=== PATIENT | female | born 1990 | race Caucasian/White ===

== ENCOUNTER 2020-01-12 21:10 | Emergency (ER) | payer OTHER, SELFPAY ==
--- NOTE | ~2020-01-12 | XR_ITS ---
EXAMINATION: XR lumbar spine 2-3V DATE: 01/12/2020 22:01 INDICATION: Low back pain after working out TECHNIQUE: Anteroposterior and lateral views of the lumbar spine, and cone-down lateral view of the l umbosacral junction were obtained. COMPARISON: CT abdomen and pelvis dated 12/19/2016 FINDINGS: Alignment is normal. Vertebral body heights are normal. Unchanged mild disc height loss at L4-L5. Rem aining disc heights are normal. Minimal to mild lumbar facet osteoarthritis. Sacrum and bilateral sac roiliac joints are normal. Normal bowel gas pattern. IMPRESSION: 1. Unchanged mild lower lumbar spondylosis. No evident acute osseous abnormality. Reviewed, dictated and finalized at location A. SHEARER IMPRESSION: 1. Unchanged mild lower lumbar spondylosis. No evident acute osseous abnormalit y.
[2020-01-12 21:14] VITALS: BP 141/94; PULSE 91; RESP 20; TEMP 36.5; O2SAT 100
--- NOTE | 2020-01-12 21:38 | ED.BACK ---
HPI - Back Pain/Injury General Chief Complaint: Back Pain/Injury Stated Complaint: lower back pain after excercise Time Seen by Provider: 01/12/20 21:21 Source: patient and RN notes reviewed Mode of arrival: ambulatory Limitations: no limitations History of Present Illness HPI Narrative: Pt is a 29 y/o female who presents to the ED with c/o low back pain secondary to injury happening this evening. She notes that she was performing an exercise with kettlebells this evening when she accidentally bent her lower back and felt an immediate shooting pain in her lumbar spine. Pt states that bending her spine seems to aggravate her pain. She notes that she has been able to walk since the injury, and currently denies any numbness/tingling or other symptoms. MD elicited complaint: back injury Onset (ago): hour(s) (several) Quality: other (shooting) Location: lumbar spine Exacerbating factors: movement (bending spine) Context: while lifting Associated symptoms: denies other symptoms Related Data Allergies Allergy/AdvReac Type Severity Reaction Status Date / Time nut - unspecified Allergy Unknown tree nuts Verified 11/22/17 21:20 sulfamethizole Allergy Unknown Nausea Verified 11/22/17 21:20 tramadol Allergy Unknown Nausea Verified 11/22/17 21:20 Vinegar Allergy Severe HIVES,THROAT Uncoded 01/03/17 05:42 SWELLING Review of Systems Review of Systems: Narrative: CONSTITUTIONAL: Denies fever, chills, or sweats. MUSCULOSKELETAL: Reports low back pain. Denies joint pain or myalgia. NEUROLOGIC: Denies headache, numbness/tingling, difficulty walking, or weakness. : No difficulty with bowel or bladder function, denies saddle anesthesia All systems reviewed & are unremarkable except as noted in HPI and below PMFSH Past Medical History Medical History Colitis Eczema Endometriosis GI bleed Psoriasis Surgical History Surgical History No significant past surgical history Family History Family History (Updated 08/01/18 @ 11:50 by DOCTOR UNKNOWN) Father Diabetes mellitus Family history of cardiovascular disease Mother Diabetes mellitus Depression Other Family history of malignant neoplasm of breast Family history of malignant neoplasm of ovary Social History Social History Smoking status: Never smoker Alcohol intake: never Exam Narrative: Exam Narrative: GENERAL: Well-appearing, well-nourished, and in no acute distress. HEAD: Normocephalic, atraumatic. EYES: PERRLA and EOMI. ENT: Nares clear, no rhinorrhea or epistaxis. Mucous membranes moist. NECK: Supple. CHEST: Clear to auscultation. No respiratory distress. HEART: Regular rate and rhythm. No murmur heard. Normal peripheral pulses. ABDOMEN: Soft, nontender, nondistended, normal active bowel sounds. EXTREMITIES: Normal range of motion. No edema. SPINE: Midline L4 and lumbar paraspinal tenderness. SKIN: Warm, dry, no rash. NEURO: No focal deficits. Alert and oriented. . EOMs intact without nystagmus. No facial droop/asymmetry noted bilaterally. Grimace intact. Intact sensation in face. Hearing intact bilaterally. Shoulder shrug intact. Strength 5/5 bilateral upper extremities. Strength 5/5 bilateral lower extremities. Reflexes 2+ patellar. Heel to taylor intact bilaterally.Ambulatory with pain in paraspinal L4 area, no stepoffs or deformities. Pt with pain with flexion. Course Course Emergency Course: Given History and Exam the patient appears to be at low risk for Spinal Cord Compression Syndrome, Vertebral Malignancy/Mets, acute Spinal Fracture, Vertebral Osteomyelitis, Epidural Abscess, Infected or Obstructing Kidney Stone. Patient with most likely disc herniation, radiculopathy from improper lifting with exercise this evening. Their presentation appears most likely to be secondary to non-emergent musculoskeletal etiology vs
[2020-01-12] MEDS: ACETAMINOPHEN 500 MG TABLET 1000 MG PO (22:03)
[2020-01-12] MEDS: DEXAMETHASONE SOD PHOS INJ 4 MG/ML VIAL 10 MG BY MOUTH (22:03)
[2020-01-12] MEDS: KETOROLAC (*BKC) 60 MG/2 ML VIAL 30 MG IM (22:14)
[2020-01-12] MEDS: DIAZEPAM 5 MG TABLET PO (22:20)
[2020-01-12 22:46] VITALS: BP 138/90; PULSE 88; RESP 16; O2SAT 100
== END 2020-01-12 22:40 | disposition home or self-care (01) ==
PROVIDERS: Emergency Provider Emergency Medicine; PCP Family Medicine
DX: M54.16 Radiculopathy, lumbar region (principal)
CPT/HCPCS: 72100; 81025; 96372; 99283; A9270; J1100; J1885

== ENCOUNTER 2020-04-29 12:28 | Outpatient (CLI) | payer OTHER, SELFPAY ==
--- NOTE | ~2020-04-29 | MR_ITS ---
EXAMINATION: MR lumbar spine wo con DATE: 04/29/2020 13:55 INDICATION: Lumbar radiculopathy. TECHNIQUE: Magnetic resonance imaging (MRI) of the lumbar spine was performed without intravenous con trast. Sequences included sagittal T2-weighted FSE, sagittal T2-weighted FS FSE, sagittal T1-weighted FSE, and axial T2-weighted FSE. COMPARISON: Lumbar spine radiographs 01/12/2020 FINDINGS: Bone alignment is normal. Vertebral body heights are normal. There is mildly decreased disc height at L4-L5. The distal spinal cord signal intensity is normal. The conus medullaris is at T12-L 1. The following disc levels are specifically discussed: L1-L2 through L3-L4: The disc does not extend beyond the endplate margin. There is no facet joint ost eoarthritis. There is no neural foraminal stenosis. There is no central canal stenosis. L4-L5: The disc is bulging and abuts the bilateral L5 nerve roots. There is mild bilateral facet join t osteoarthritis. There is mild bilateral neural foraminal stenosis. There is mild central canal sten osis. L5-S1: The disc does not extend beyond the endplate margin. There is no facet joint osteoarthritis. T here is no neural foraminal stenosis. There is no central canal stenosis. IMPRESSION: 1. Mild spondylosis at L4-L5. Reviewed, dictated and finalized at location A.
== END 2020-04-29 12:29 | disposition home or self-care (01) ==
PROVIDERS: PCP Family Medicine
DX: M47.26 Other spondylosis with radiculopathy, lumbar region (principal)
CPT/HCPCS: 72148

== ENCOUNTER 2020-12-09 06:54 | Outpatient (NON) | payer OTHER, SELFPAY ==
[2020-12-09 22:24] LABS: SARS-CoV-2 RNA PCR Negative
== END 2020-12-09 06:55 ==
LOC: ANHCOVIDDT 06:58
PROVIDERS: Family Provider Family Medicine; PCP Family Medicine; Visit Provider Family Medicine
DX: R50.9 Fever, unspecified (principal); Z20.822 Contact with and (suspected) exposure to COVID-19
CPT/HCPCS: C9803; U0003; U0005

== ENCOUNTER 2021-07-24 11:26 | Emergency (ER) | payer OTHER, SELFPAY ==
[2021-07-24 11:33] VITALS: BP 136/89; PULSE 81; RESP 12; TEMP 36.8; O2SAT 100
--- NOTE | 2021-07-24 11:49 | ED.GENADULT ---
HPI - General Adult General Chief complaint: Nausea/Vomiting/Diarrhea Stated complaint: fever/vomiting/diarrhea/drainage/head congestion Source: patient Mode of arrival: ambulatory Limitations: no limitations History of Present Illness HPI narrative: Patient is a 31-year-old female presents to the urgent care via POV for evaluation of decreased appetite, nausea, vomiting, and diarrhea that has been present for 2 days. Additionally she reports fever, nasal drainage, and head congestion. Maximum temperature was 101.0. No relief with Tylenol or Zyrtec. Symptoms improve with not eating. Patient denies poor p.o. intake. Also reports 9 episodes of vomiting undigested food. She is now dry heaving. She reports brown watery diarrhea, all day Saturday . She is fully vaccinated against Covid. Denies known exposure to sick contacts. Related Data Home Medications Medication Instructions Recorded Confirmed acetaminophen 650 mg 650 mg PO Q8H 01/19/20 06/06/21 tablet,extended release cetirizine 10 mg tablet 10 mg PO DAILY 02/12/20 06/06/21 norethindrone 1 mg-ethinyl 1 tablet PO DAILY 02/12/20 06/06/21 estradiol 35 mcg () tablet Allergies Allergy/AdvReac Type Severity Reaction Status Date / Time sulfamethizole Allergy Unknown Nausea Verified 06/06/21 11:51 tramadol Allergy Unknown Nausea Verified 06/06/21 11:51 Vinegar Allergy Severe HIVES,THROAT Uncoded 06/06/21 11:51 SWELLING Review of Systems Review of Systems: Denies past abdominal medical history. Pertinent negatives chills, sweats, malaise, poor p.o. intake, recent weight loss, lymphadenopathy, headache, sore throat, dizziness, LOC, urinary sxs, back/flank pain, extremity paresthesias, blood in stool, constipation, belching, bloating, dry mouth, heartburn, jaundice, vomiting blood, sinus problems, nasal drainage, sneezing, cough, shortness of breath, heart palpitations PMFSH Past Medical History Medical History (Updated 07/24/21 @ 12:19 by Colleen Alcantar, STRATEGY EXECUTION CONSULTANT, ) Colitis Eczema Endometriosis GI bleed Psoriasis Surgical History Surgical History No significant past surgical history Family History Family History Father Diabetes mellitus Family history of cardiovascular disease Mother Diabetes mellitus Depression Other Family history of malignant neoplasm of breast Family history of malignant neoplasm of ovary Social History Social History Alcohol intake: never Exam Narrative: GENERAL: Well-appearing, well-nourished, and in no acute distress. HEAD: Normocephalic, atraumatic. NECK: Supple. No lymphadenopathy or nuchal rigidity. CHEST: Lung sounds are clear to auscultation in bilateral lung hathaway. No respiratory distress. HEART: Regular rate and rhythm. No murmur, gallop, or rub heard. ABDOMEN: Soft, obese, non-distended, hypo-active bowel sounds in all quadrants. Moderate pain elicited to right upper quadrant upon palpation. Generalized tenderness is appreciated throughout all quadrants. Patient spontaneously guarded abdomen upon palpation. No rebound tenderness. No pulsatile or palpable abdominal mass(es). No CVAT : Bladder non-distended, non-tender EXTREMITIES: Normal range of motion. No edema. SKIN: Warm, dry, no rash. No skin color changes. Excellent turgor. NEURO: No focal deficits. Alert and oriented x3. SPECIAL OBSERVATIONS: Smiling. Laughing. No evidence of discomfort. C/O of of proportion to exam. Eating XXX. Running around. Tolerates food/fluids. Course Vital Signs Vital signs: Vital Signs Temperature 98.3 F 07/24/21 11:33 Pulse Rate 81 07/24/21 11:33 Respiratory Rate 12 07/24/21 11:33 Blood Pressure 136/89 07/24/21 11:33 Pulse Oximetry 100 07/24/21 11:33 Temperature 98.3 F 07/24/21 11:33 Pulse Rate 81 07/24/21 1
== END 2021-07-24 12:12 | disposition short-term general hospital (02) ==
PROVIDERS: Emergency Provider Nurse Practitioner Family; PCP Family Medicine
DX: R10.9 Unspecified abdominal pain (principal); R11.2 Nausea with vomiting, unspecified; R19.7 Diarrhea, unspecified
CPT/HCPCS: 99211; 99212; G0463

== ENCOUNTER 2021-07-24 12:30 | Emergency (ER) | payer OTHER, SELFPAY ==
--- NOTE | ~2021-07-24 | CT_ITS ---
EXAMINATION: CTA chest PE abdomen pel DATE: 07/24/2021 15:55 INDICATION: Abdominal pain. Chest pain. Nausea and vomiting. TECHNIQUE: Computed tomography angiography (CTA) of the chest was performed with 100 mL Omnipaque-350 intravenous contrast timed to evaluate the pulmonary arteries. Coronal maximum intensity projection 3D-reconstructions were created by the technologist. Computed tomography (CT) of the abdomen and pelv is was performed with intravenous contrast. Automated exposure control and iterative reconstruction t echnique were employed. The dose-length product was 1820.44 mGy-cm. COMPARISON: CT abdomen and pelvis 12/19/2016 FINDINGS: CTA chest: The lungs demonstrate motion artifact and mild atelectasis. No pleural effusion. The heart size is normal. No pericardial effusion. There is no pulmonary embolus. CT abdomen and pelvis: The liver, gallbladder, spleen, pancreas, adrenal glands, and kidneys are norm al. There are no dilated loops of bowel. The appendix is normal. There are no pathologically enlarged lymph nodes. There is no free intraperitoneal fluid. The bones are unremarkable. IMPRESSION: 1. No pulmonary embolus. Sensitivity is moderately decreased by motion artifact. 2. No etiology for the patient's symptoms. Reviewed, dictated and finalized at location A. IMPRESSION: 1. No pulmonary embolus. Sensitivity is moderately decreased by motion artifact . 2. No etiology for the patient's symptoms.
--- NOTE | ~2021-07-24 | XR_ITS ---
EXAMINATION: XR chest 1V portable DATE: 07/24/2021 14:07 INDICATION: Cough TECHNIQUE: frontal view of the chest was obtained. COMPARISON: Chest radiograph dated 11/03/2005 FINDINGS: The lungs remain clear with no focal airspace opacities, pulmonary edema, pleural effusion or pneumot horax. The cardiomediastinal silhouette is normal. Visualized bones and soft tissues are unremarkable . IMPRESSION: 1. No acute cardiopulmonary disease. Reviewed, dictated and finalized at location A.
[2021-07-24 12:33] VITALS: BP 125/81; PULSE 73; RESP 16; TEMP 37.3; O2SAT 98
[2021-07-24 12:48] LABS: Basophils Percent Auto 0.4 % (0.2-1.2); Eosinophils Absolute Auto 0.1 K/mm3 (0-0.3); Eosinophils Percent Auto 1.3 % (0-4.4); Hematocrit 41.8 % (37.0-47.0); Hemoglobin 13.8 g/dL (12.0-15.0); Immature Granulocyte Absolute 0.02 K/mm3 (0.00-0.031); Immature Granulocyte Percent A 0.3 % (0-0.5); Lymphocytes Absolute Auto 2.02 K/mm3 (0.9-3.2); Lymphocytes Percent Auto 29.6 % (18.3-44.2); Mean Corpuscular Hemoglobin 29.2 pg (26-34); Mean Corpuscular Volume 88.4 fl (80-100); Mean Platelet Volume 9.6 fl (7.4-10.4); Monocytes Absolute Auto 0.4 K/mm3 (0.1-0.6); Neutrophils Absolute Auto 4.3 K/mm3 (1.3-6.7); Neutrophils Percent Auto 62.4 % (45.5-73.1); Platelet Count Result 321 k/mm3 (150-375); Red Blood Count 4.73 M/mm3 (4.2-5.4); Red Cell Distribution Width 13.3 % (11.5-14.5); White Blood Count 6.8 K/mm3 (4.5-10.0)
[2021-07-24 13:03] LABS: Alanine Aminotransferase 21 U/L (4-35); Albumin Level 3.8 g/dL (3.5-5.1); Alkaline Phosphatase 86 U/L (38-126); Anion Gap 5 mmol/L (8-16); Aspartate Amino Transferase 22 U/L (14-36); Bilirubin,Total 0.4 mg/dL (0.2-1.3); Blood Urea Nitrogen 9 mg/dL (7-17); Calcium 8.8 mg/dL (8.4-10.2); Carbon Dioxide 22 mmol/L (22-30); Chloride 110 mmol/L (98-107); Estimated CRCL calculation 104 ml/min; Estimated Glomerular Filt Rate > 60; Glucose 96 mg/dL (65-110); Lipase 30 U/L (23-300); Potassium 3.9 mmol/L (3.4-5.0); Sodium 137 mmol/L (137-145)
[2021-07-24 13:05] LABS: Add Urine Microscopic? YES; Appearance Urine Clear (Clear); Bacteria Urine Trace /hpf; Bilirubin Urine Negative (Negative); Blood Urine 1+ (Negative); Color Urine Yellow (Yellow); Glucose Urine UA Negative (Negative); Ketones Urine Negative (Negative); Leukocyte Esterase Ur 2+ LEU/UL (Negative); Mucus Urine Rare /lpf; Nitrate Urine Negative (Negative); Protein Urine Negative (Negative); Squamous Epithelial Cell Urine Moderate /hpf (Few); Urobilinogen Urine Negative mg/dL (<2.0)
[2021-07-24 13:37] VITALS: BP 137/90; PULSE 74; RESP 16; TEMP 36.8; O2SAT 100
--- NOTE | 2021-07-24 13:57 | ECG_ITS ---
Measurements Intervals [place] Rate: 61 P: -11 WI: 132 QRS: 42 QRSD: 98 T: 30 QT: 405 QTc: 411 Interpretive Statements SINUS RHYTHM WITH SINUS ARRHYTHMIA NORMAL ECG Electronically Signed On 07-24-2021 17:14:54 CDT by Gurmeet Rodriguez D.O.
--- NOTE | 2021-07-24 13:59 | ED.ABDPAIN ---
HPI - Abdominal Pain General Chief Complaint: Abdominal Pain Stated Complaint: n/v/fever, RUQ abd pain x2d Time Seen by Provider: 07/24/21 13:49 Source: patient Mode of arrival: ambulatory Limitations: no limitations History of Present Illness HPI narrative: This is a 31-year-old female that presents the emergency department for cold symptoms ongoing over the last 5 days. Reports she started to have some congestion. Reports that she started to have nausea vomiting and diarrhea. Reports she has also now developed a cough. Also reports intermittent fevers and chest tightness. Denies abdominal pain or dysuria. Related Data Home Medications Medication Instructions Recorded Confirmed norethindrone 1 mg-ethinyl 1 tablet PO DAILY 02/12/20 06/06/21 estradiol 35 mcg () tablet Allergies Allergy/AdvReac Type Severity Reaction Status Date / Time sulfamethizole Allergy Unknown Nausea Verified 06/06/21 11:51 tramadol Allergy Unknown Nausea Verified 06/06/21 11:51 Vinegar Allergy Severe HIVES,THROAT Uncoded 06/06/21 11:51 SWELLING Review of Systems Review of Systems: CONSTITUTIONAL: Reports fever ENT: Reports rhinorrhea, congestion CARDIOVASCULAR: Reports chest tightness RESPIRATORY: Reports cough. Denies dyspnea. GASTROINTESTINAL: Reports nausea, vomiting and diarrhea. Denies abdominal pain GENITOURINARY: Denies dysuria All systems reviewed & are unremarkable except as noted in HPI and below PMFSH Past Medical History Medical History (Updated 07/24/21 @ 16:49 by Lizz Rutherford PA-C) Colitis Eczema Endometriosis GI bleed Psoriasis Surgical History Surgical History No significant past surgical history Family History Family History Father Diabetes mellitus Family history of cardiovascular disease Mother Diabetes mellitus Depression Other Family history of malignant neoplasm of breast Family history of malignant neoplasm of ovary Social History Social History Alcohol intake: never Exam Narrative: GENERAL: Well-appearing, well-nourished, and in no acute distress. HEAD: Normocephalic, atraumatic. EYES: EOMI. ENT: Nares clear, no rhinorrhea or epistaxis. Mucous membranes moist. Oropharynx without tonsillar hypertrophy exudate or other lesions. Bilateral TMs pearly husain non-bulging NECK: Supple. No adenopathy or masses. CHEST: Clear to auscultation. No respiratory distress. No wheezes rales or rhonchi HEART: Regular rate and rhythm. No murmur heard. Normal peripheral pulses. ABDOMEN: Soft, nontender, nondistended, normal active bowel sounds. No CVA tenderness EXTREMITIES: Normal range of motion. No edema. SKIN: Warm, dry, no rash. NEURO: No focal deficits. Alert and oriented x3. PSYCH: Normal mood and affect Course Vital Signs Vital signs: Vital Signs Temperature 99.2 F 07/24/21 12:33 Pulse Rate 73 07/24/21 12:33 Respiratory Rate 16 07/24/21 12:33 Blood Pressure 125/81 07/24/21 12:33 Pulse Oximetry 98 07/24/21 12:33 Temperature 98.2 F 07/24/21 13:37 Pulse Rate 74 07/24/21 13:37 Respiratory Rate 16 07/24/21 13:37 Blood Pressure 137/90 07/24/21 13:37 Pulse Oximetry 100 07/24/21 13:37 MDM - Abdominal Pain MDM Narrative Medical decision making narrative: Patient presents to the ER for ongoing cold symptoms. Reports cough, congestion, fever, nausea, vomiting. She is afebrile and nontoxic-appearing. Her vitals are stable. CBC and metabolic panel without concerning findings. UA with 10-15 white blood cells, but also squamous epithelial cells. Suspect this was a contaminated catch. This will be sent for culture. Patient is asymptomatic. EKG without concerning findings. Baseline troponin is negative. D-dimer was elevated, so CTA of the chest was obtained. This is without evidence o
[2021-07-24] MEDS: ONDANSETRON INJ 4 MG/2 ML VIAL IV PUSH (14:07)
[2021-07-24] MEDS: SODIUM CHLORIDE 0.9% IV 1,000 ML 999 ML IV CONT (14:07)
--- NOTE | 2021-07-24 14:13 | PC.NURSE ---
lab, [place], added on Procal, Ferr, PT INR PTT D Dimer, LDH, and Trop I
[2021-07-24 14:24] LABS: Lactate Dehydrogenase 315 U/L (313-618)
[2021-07-24 14:27] LABS: INR 0.9; Prothrombin Time 12.3 Seconds (11.1-14.7)
[2021-07-24 14:28] LABS: Partial Thromboplastin Time 27.6 SECONDS (22.3-36.8)
[2021-07-24 14:37] LABS: Troponin I < 0.012 ng/mL (0.000-0.034)
[2021-07-24 16:57] VITALS: BP 133/84; PULSE 82; RESP 16; O2SAT 100
[2021-07-25 19:52] LABS: SARS-CoV-2 RNA PCR Negative
== END 2021-07-24 17:04 | disposition home or self-care (01) ==
PROVIDERS: Physician Assistant; Emergency Provider Emergency Medicine; PCP Family Medicine
DX: Z20.822 Contact with and (suspected) exposure to COVID-19 (principal); B34.9 Viral infection, unspecified
CPT/HCPCS: 36415; 71045; 71275; 74177; 80053; 81001; 81025; 82728; 83615; 83690; 84145; 84484; 85025; 85380; 85610; 85730; 87086; 87088; 93005; 96361; 96374; 96375; 99284; C9803; J0131; J2405; J7030; Q9967; U0003; U0005

== ENCOUNTER → 2021-09-26 03:54 | Outpatient (CLI) | payer OTHER, SELFPAY ==
[2021-09-26 16:54] LABS: SARS-CoV-2 RNA PCR Negative
== END ==
PROVIDERS: PCP Family Medicine; Visit Provider Physician Assistant
DX: R05.9 Cough, unspecified (principal); Z20.822 Contact with and (suspected) exposure to COVID-19
CPT/HCPCS: C9803; U0003; U0005

== ENCOUNTER → 2021-11-27 09:06 | Outpatient (CLI) | payer OTHER, SELFPAY ==
[2021-11-27 20:23] LABS: SARS-CoV-2 RNA PCR Negative
== END ==
PROVIDERS: PCP Family Medicine; Visit Provider Family Medicine
DX: R05.9 Cough, unspecified (principal); Z20.822 Contact with and (suspected) exposure to COVID-19
CPT/HCPCS: C9803; U0003; U0005

== ENCOUNTER 2024-02-03 08:27 | Outpatient (CLI) | payer OTHER, SELFPAY ==
--- NOTE | ~2024-02-03 | MMUS_ITS ---
EXAMINATION: MM diagnostic sarah BI w gila, US breast RT limited HISTORY: Palpable right breast abnormality TECHNIQUE: Additional 3-D tomosynthesis images of the breasts were performed and synthetic 2-D images were generated. CAD analysis was submitted and interpreted. High resolution Limited right breast ult rasound was performed. COMPARISON: None BREAST PARENCHYMAL COMPOSITION: Not dense: There are scattered areas of fibroglandular density. FINDINGS: MAMMOGRAPHIC FINDINGS: There are no suspicious masses, calcifications or architectural distortion in either breast to sugges t malignancy. ULTRASOUND: Limited right breast ultrasound: Normal heterogeneous echotexture in the area of palpable concern. No discrete solid or cystic mass. IMPRESSION: 1. No evidence for malignancy in either breast. 2. Recommend follow-up screening mammogram at age 40. BI-RADS Category 1: Negative Reviewed, dictated and finalized at location A. IMPRESSION: 1. No evidence for malignancy in either breast. 2. Recommend follow-up screening mammogram at age 40. BI-RADS Category 1: Negative
== END 2024-02-03 08:28 ==
PROVIDERS: PCP Advanced Practice Midwife; Visit Provider Advanced Practice Midwife
DX: N64.4 Mastodynia (principal)
CPT/HCPCS: 76642; 77062; 77066; G0279

== ENCOUNTER → 2024-07-06 10:30 | Outpatient (CLI) | payer OTHER, SELFPAY ==
--- NOTE | ~2024-07-06 | XR_ITS ---
XR wrist RT min 3V Ordering provider: Janette Lucas NP History: . M25.531 - Pain in right wrist . Comparison: None. FINDINGS: BONES: No acute fracture or dislocation. No definite scaphoid fracture. JOINT SPACES: Normal. SOFT TISSUES: Normal. IMPRESSION: No acute osseous abnormality right wrist. Reviewed, dictated and finalized at location A.
== END ==
PROVIDERS: PCP Family Medicine; Visit Provider Nurse Practitioner Family
DX: M25.531 Pain in right wrist (principal)
CPT/HCPCS: 73110

== ENCOUNTER 2024-12-17 10:23 | Outpatient (CLI) | payer OTHER, SELFPAY ==
--- NOTE | ~2024-12-17 | XR_ITS ---
EXAMINATION: XR ankle LT 2V, XR foot RT 2V, XR foot LT 2V, XR ankle RT 2V DATE: 12/17/2024 11:02 INDICATION: Multiple joint pain TECHNIQUE: 1. Anteroposterior and lateral view of the left ankle were obtained. 2. Dorsoplantar and lateral views of the left foot were obtained. 3. Anteroposterior and lateral view of the right ankle were obtained. 4. Dorsoplantar and lateral views of the right foot were obtained. COMPARISON: None. FINDINGS: Left foot and ankle: Alignment of the left foot and ankle is normal. No fracture or osteochondral lesion. Mild osteoarthri tis at the second tarsal metatarsal joint. Remaining joint spaces are relatively preserved. No erosio ns to suggest inflammatory arthritis. Tiny enthesophytes at the calcaneal insertion of the distal Ach illes tendon. No ankle joint effusion. The soft tissues are unremarkable. Right foot and ankle: Alignment of the right foot and ankle is normal. No fracture or osteochondral lesion. Joint spaces ar e well maintained. No erosions to suggest inflammatory arthritis. Tiny enthesophyte at the calcaneal insertion of the distal Achilles tendon. No ankle joint effusion. The soft tissues are unremarkable. IMPRESSION: 1. Tiny bilateral Achilles calcaneal enthesophytes. 2. 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 Reviewed, dictated and finalized at location B. ICAL BORING MILL OPERATOR IMPRESSION: 1. Tiny bilateral Achilles calcaneal enthesophytes. 2. 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 IMPRESSION: 1. Tiny bilateral Achilles calcaneal enthesophytes. 2. 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 IMPRESSION: 1. Tiny bilateral Achilles calcaneal enthesophytes. 2. 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
--- NOTE | ~2024-12-17 | XR_ITS ---
EXAMINATION: XR hand LT 2V DATE: 12/17/2024 11:03 INDICATION: Ankle joint pain TECHNIQUE: 1. Posteroanterior and lateral views of the left wrist were obtained. 2. Dorsal palmar and lateral views of the left hand were obtained. 3. Posteroanterior and lateral views of the right wrist were obtained. 4. Dorsal palmar and lateral views of the right hand were obtained. COMPARISON: None. FINDINGS: Left hand and wrist: Alignment of the hand and wrist is normal. No fracture identified. Joint spaces are normal. No eros ions to suggest inflammatory arthritis. No focal soft tissue swelling. Right hand and wrist: Alignment of the hand and wrist is normal. No fracture identified. Joint spaces are normal. No eros ions to suggest inflammatory arthritis. No focal soft tissue swelling. IMPRESSION: 1. Negative bilateral hand and wrist radiographs. Reviewed, dictated and finalized at location B. AULIC AUTO JACK MECHANIC IMPRESSION: 1. Negative bilateral hand and wrist radiographs. IMPRESSION: 1. Negative bilateral hand and wrist radiographs. IMPRESSION: 1. Negative bilateral hand and wrist radiographs.
--- NOTE | ~2024-12-17 | XR_ITS ---
EXAMINATION: XR sacroiliac joints min 3V DATE: 12/17/2024 11:03 INDICATION: Multiple joint pain. TECHNIQUE: 3 views of the sacroiliac joints were obtained. COMPARISON: CT 07/24/2021 FINDINGS: Alignment is normal. No fracture. There is mild osteoarthritis of the sacroiliac joints matilde racterized by tiny osteophytes. IMPRESSION: 1. Mild osteoarthritis of the sacroiliac joints. Reviewed, dictated and finalized at location A. ENTER AND JOINER
--- OUTSIDE RECORDS SUMMARY | 2024-12-17 11:18 | XMS_ITS | Continuity of Care Document ---
Author Organization [facility] Address [address] [place] [address] Phone Care Team Providers Care Oral And Maxillofacial Surgery Resident Name Role Phone Honorio Merritt MD Unavailable Unavailable Allergies, Adverse Reactions, Alerts Substance Reaction Status Criticality No Known Allergies Active No Inform ation Medications Medication Instructions Dosage Effective Dates (start - stop) Status Comments prednisone 10 mg tablet take 1 tablet by oral route every day 10 MG - Active ADVIL (unknown strength) take 2 tablet by oral route every 4 - 6 hours as needed with food Not Available - Active CYCLOBENZAPRINE HCL ER (unknown strength) take 1 capsule by oral route every day Not Available - Active Necon 0.5/35 (28) 0.5 mg-35 mcg tablet take 1 tablet by oral route every day 1.00 tablet - Active Procedures Procedure Date OFFICE/OUTPATIENT VISIT EST OFFICE/OUTPATIENT VISIT NEW Advance Directives Directive Yes / No Effective Date File Name No Information Encounters Encounter Description Practice Location Reason(s) For Visit Diagnoses Date Provider Providers Copied on Encounter OFFICE/OUTPA TIENT VISIT EST [facility], [address], [place], [address], [place] tel:[phone] [facility] Spondylosis without myelopathy or radiculopathy, lumbosacral regionSpinal stenosis, lumbar region without neurogenic claudicationOther intervertebral disc displacement, lumbar regionSpondylosis without myelopathy or radiculopathy, lumbar region 0 René Olmedo . [address], [place], [place], [id number] . tel:[phone] OFFICE/OUTPA TIENT VISIT NEW [facility], [address], [place], [address], [place] tel:[phone] [facility] Radiculopathy, lumbar regionSpondylosis without myelopathy or radiculopathy, lumbosacral region 0 René Worship . [address], [place], [place], [id number] . tel: [phone] Family History Family Member Type Diagnosis Age At Onset Father Problem Cardiovascular disease Father Problem depression Mother Problem (finding) Sister Problem Alive and well Father Problem hypertension Father Problem Diabetes mellitus Payers Payer name Insurance type Covered libertarian ID Authoriza tialan(s) [facility] Choice/Choice Plus E2 [id number] Social History Type Description Quantity Date Captured Comments Alcohol Use Details Unknown Caffeine Use Details Unknown Tobacco Use Status No Information Smoking Status No Information Sex Female Chief Complaint And Reason For Visit No Information Reason For Referral Reason For Referral No Information Plan Of Treatment Date Type Action Status Referral Ordered: MRI SPI CANAL&CNTS LMBR C-MATRL spine, lumbar Appointment date/timeframe: 04/29/2020 ordered History Of Present Illness Encounter Date Complaint History Of Prese nt Illness No Information Functional Status Date Functional Assessmen t No Information Instructions Date Instruction Additional Infor mation No Information Assessments Type Assessment Date assessment Spondylosis without myelopathy or radiculopathy, lumbosacral region assessment Spinal stenosis, lumbar region w ithout neurogenic claudication assessment Other intervertebral disc displa cement, lumbar region assessment Spondylosis without myelopathy o r radiculopathy, lumbar region Patient Care Teams Name Effective Dates (start - stop) Status Members No Information
--- OUTSIDE RECORDS SUMMARY | 2024-12-17 11:18 | XMS_ITS | Continuity of Care Document ---
Author Organization [facility] Address [address] [place] [address] Phone Care Team Providers Care Wastewater Engineer Name Role Phone Gil Aquino Unavailable Unavailable Procedures Procedure Date Eye Exam & Treatment Refraction Advance Directives Directive Yes / No Effective Date File Name No Information Encounters Encounter Description Practice Location Reason(s) For Visit Diagnoses Date Provider Providers Copied on Encounter Merged with [facility], [address], [place], [place], [id number], [place] tel:[phone] [facility] No Information [address]. [address] , [address], [place], [address], [place]. tel:[phone] Family History Family Member Type Diagnosis Age At Onset No Information Payers Payer name Insurance type Covered republican ID Authoriza tialan(s) [facility] Commercial CI [id number] Social History Type Description Quantity Date Captured Comments Sex Female Smoking Status No Information Chief Complaint And Reason For Visit No Information Reason For Referral Reason For Referral No Information History Of Present Illness Encounter Date Complaint History Of Prese nt Illness No Information Functional Status Date Functional Assessmen t No Information Instructions Date Instruction Additional Infor mation No Information Assessments Type Assessment Date No Information Patient Care Teams Name Effective Dates (start - stop) Status Members No Information
--- OUTSIDE RECORDS SUMMARY | 2024-12-17 11:18 | XMS_ITS | Data Portability ---
Author Organization [place] [facility], Main Office Address [address] [place] [address] Assessment Encounter Date Assessment Date Assessment LastModified by Organization Details LastModified Time 10/22/2024 10/22/2024 07/10/2024: Prior PCP Janette Lucas LDL 102 CRP 5.7 ALB 3.3L TP WNL A1C 5.3 URSZULA +ve CLAIMS ATTORNEY +ve [email or web address] Not available 10/22/2024 12:02:57 Plan of Treatment Reminders Order Date Submit Date Provider Last Modified By Organization Details Last Modified Time Details Appointments Any 15 2024 10:30A Christopher caldera MD Not available Not available Not available Lab lipid panel, serum 2023 024 [facility] (Lab), [address] [place], [address], 12/17/2024 04:05:53 TSH, serum or plasma 2023 024 [facility] (Lab), [address] [place], [address], 12/17/2024 04:05:54 CBC w/ auto diff 2023 024 [facility] (Lab), [address] [place], [address], 12/17/2024 04:05:54 CMP, serum or plasma 2023 024 [facility] (Lab), [address] [place], [address], 12/17/2024 04:05:54 vitamin D, 25-hydrox y, total, serum 2023 [facility] ([facility]), [address] [place], [address], 12/17/2024 04:05:55 vitamin B12 + folate, serum or blood 2023 [facility], [address], [place], [address], 12/17/2024 04:06:03 Referral obstetric millie and gynecolog ist referral - Please call patient to schedule. 2023 024 [email or web address] Sharmin Gutiérrez, [address], [place], [address], Ph [phone] 12/10/2024 12:00:41 rheumatol ogist referral - Please call patient to schedule. 2023 [email or web address] [facility] Rheumatology [facility], [address] [facility], [place], [address], 12/10/2024 12:00:42 orthopedi c surgeon referral - Please call patient to schedule. 2023 [email or web address] Jermaine PRECIADO, [address], [place], [address], 12/10/2024 12:00:42 Procedures None recorded. Surgeries None recorded. Imaging None recorded. Medication Orders None recorded. Patient TargetsNo targets recorded. Patient InstructionsNo instructions recorded. Reason for Referral Patrol Man And Gynecologis t Referral for Gynecologic examination Please call patient to schedule. Referring Physician: Jesus Barreto, Internal Medicine, Encounter Date: 10/22/2024 Fiction And Nonfiction Prose Writer Referral for Multiple joint pain Please call patient to schedule. Referring Physician: Jesus Barreto, Internal Medicine, Encounter Date: 10/22/2024 Orthopedic Surgeon Referral for Pain of bilateral knee joints Please call patient to schedule. Referring Physician: Jesus Barreto, Internal Medicine, Encounter Date: 10/22/2024 Problems Name Problem SNOMED Code Status Onset Date Resolution Date Notes Provider Name and Address Organization Details Recorded Time Vitamin D deficiency 36822991 Active 2023 Jesus caldera MD [address], [place], [address], [facility] [employer] 4 17:04:18 Multiple joint pain 11600506 Active 2023 Jesus caldera MD [address], [place], [address], [facility] 4 11:51:46 Pain of bilateral knee joints 6364594508892 04 Active 2023 Jesus caldera MD [address], [place], [address], [facility] 4 11:52:15 Serum vitamin B12 below reference range 399770983 Active 2023 Jesus caldera MD [address], [place], [address], [facility] 4 11:52:40 Obesity 690291423 Active 2023 Jesus caldera MD [address], [place], [address], [facility] [employer] 4 11:56:08 Acute sinusitis 76923922 Active 2024 LUIS EDUARDO Greenberg, [facility] [employer] 5 09:35:55 Problem Notes None recorded. Medical Equipment None Reported. Allergies Allergen ID Allergen Name Allergen Category Reaction Reaction Severity Criticality Documentation Date Start Date Code Code System Note Provider Name and Address Organization Details Recorded Time 74321 cider vinegar food,medi cation rash Not available Not available 10/22/2024 85029 9 RxNorm LUIS EDUARDO Greenberg, [facility] 4 11:16:07 Medications Name Sig Start Date Stop Date Status Note LastModified by Organization Details LastModified Time Nortrel 1/35 (28) 1 mg-35 mcg tablet TAKE 1 TABLET BY MOUTH DAILY CONTINUOU SLY active Not Available Not Available No t Available dicyclomine 20 mg tablet TAKE 1 TABLET BY MOUTH FOUR TIMES DAILY 10/22 completed Not Available Not Available Not Available cephalexin 500 mg capsule TAKE 1 CAPSULE BY MOUTH TWICE DAILY 10/22 completed Not Available Not Available Not Available Nortrel 1/35 (21) 1 mg-35 mcg tablet TAKE 1 TABLET BY MOUTH EVERY DAY 10/22 completed Not Available Not Available Not Available Necon 0.5/35 (28) 0.5 mg-35 mcg tablet Take 1 tablet every day by oral route. active Not Available Not Available No t Available amoxicillin 875 mg-potassiu m clavulanate 125 mg tablet Take 1 tablet twice a day by oral route for 7 days. 2024 active Not Available Not Available Not Avai lable B12 1000mg daily active Not Available Not Available No t Available Wegovy 0.25 mg/0.5 mL subcutaneou s pen injector INJECT 0.25 MG SUBCUTANE OUSLY ONCE EVERY WEEK 2023 active Not Available Not Available Not Avai lable Vitals Date Recorded Body weight Body mass index (BMI) Body height Body temperature Heart rate Systolic blood pressure Diastolic blood pressure Provider Name and Address Organization Details Last Updated DateTime 4 501971. 31 g 42.9 kg/m2 170.18 cm 97.7 [degF] 72 /min 120 mm[Hg] 72 mm[Hg] LUIS EDUARDO Greenberg [facility] 4 11:27:21 Social History Question Answer Notes LastModified by Organization Details LastModified Time Tobacco Smoking Status Never Smoker LUIS EDUARDO Greenberg [facility] 10/22/2024 11:22:35 Do You Have An Advance Directive? No Information not available 10/22/2024 What Is Your Level Of Alcohol Consumption? Occasional Very Rare Information not available 10/22/2024 What Is Your Level Of Caffeine Consumption? Moderate Information not available 10/22/2024 In The 14 Days Before Symptom Onset, Have You Had Close Contact With A Laboratory-conf irmed COVID-19 While That Case Was Ill? No Information not available 10/22/2024 In The 14 Days Before Symptom Onset, Have You Had Close Contact With A Person Who Is Under Investigation For COVID-19 While That Person Was Ill? No Information not available 10/22/2024 Are You Currently Employed? Yes Information not available 10/22/2024 What Type Of Diet Are You Following? REGULAR Information not available 10/22/2024 What Is The Highest Grade Or Level Of School You Have Completed Or The Highest Degree You Have Received? 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 Unknown Information not available 10/22/2024 Are There Any Guns Present In Your Home? Yes Information not available 10/22/2024 Where Do You Live? SingleLevelHouse With Basement Information not available 10/22/2024 Do You Have A Medical Power Of Palletiser Operator? No Information not available 10/22/2024 What Was The Date Of Your Most Recent Tobacco Screening? 10/22/2024 Information not available 10/22/2024 Do You Have Any Pets? Yes Information not available 10/22/2024 What Is Your Relationship Status? Single Information not available 10/22/2024 Do You Use Your Seat Belt Or Car Seat Routinely? Yes Information not available 10/22/2024 Do You Have Smoke And Carbon Monoxide Detectors In Your Home? Yes Information not available 10/22/2024 Are You Passively Exposed To Smoke? No Information not available 10/22/2024 Are There Any Smokers In Your House? No Information not available 10/22/2024 Do You Feel Stressed (tense, Restless, Nervous, Or Anxious, Or Unable To Sleep At Night)? [id number] Information not available 10/22/2024 Do You Use Any Illicit Or Recreational Drugs? No Information not available 10/22/2024 Has Tobacco Cessation Counseling Been Provided? No N/a Information not available 10/22/2024 Have You Recently Traveled Abroad? No Information not available 10/22/2024 Do You Or Have You Ever Used Any Other Forms Of Tobacco Or Nicotine? No Information not available 10/22/2024 Sex: Unknown Functional Status Question Answer Note LastModified by Organizat ion Details LastModified Time What is your exercise level? Occasional Information not available 10/22/2024 Mental Status None recorded. Family History Relationship Description Onset Age of this Age Resolved Age Notes LastModified by Organization Details LastModified Time Mother Diabetes mellitus in car accide nt Not available 10/22/2024 11:18:19 Father Diabetes mellitus Not available 2023 11:18:26 Father Chronic kidney disease Not available 2023 11:18:34 Father Chronic obstructive pulmonary disease Not available 2023 11:19:59 Father Congestive heart failure Not available 2023 11:20:06 Medical History No medical history recorded. Gynecological HistoryNo gynecological history recorded. Obstetrics History GPAL:G 0 P 0 0 0 0 Immunizations Vaccine Type Date Status Note Provider Nam e and Address Organization Details Recorded Time Influenza, recombinant, quadrivalent, PF 09/14/2021 completed Nazia Whaley RMA null, [place] [facility] 10/22/2024 11:17:17 COVID-19, mRNA, LNP-S, PF, 30 mcg/0.3 mL dose 01/13/2021 lele Whaley RMA null, [place] [facility] 10/22/2024 11:17:17 COVID-19, mRNA, LNP-S, PF, 30 mcg/0.3 mL dose 02/03/2021 lele Whaley RMA null, [place] [facility] 10/22/2024 11:17:17 Past Encounters Encounter ID Performer Location Encounter Start Date Encounter Closed Date Diagnosis/Indication Diagnosis SNOMED-CT Code Diagnosis ICD10 Code Diagnosis Note [id number] Jesus grissom MD [facility] Internal Med [facility] [address] 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'N eeds a referral to rheumatolo gy as Dr Corea the rheumatolo gist in [place] referred by her prior PCP does not take her insurance Pain of bi lateral knee joints 5713713486 74158 M25.561 M25.[address] a referral [address] Boo Serum prosper min B12 below reference range 698688293 R79.89 Obesity 084846522 E66.9 Very eager to start on GLP-1Denie s any MCT, or MEN2 or thyroid or parathyroi d complaints Will d/w her insurance if she can get zepbound, if so will prescribe and then she will RTC for demonstrat ion on the use of the pen Health Concerns Section Related Observation LastModified by Organization Detai ls LastModified Time None Recorded Concern Status LastModified by Organization Details LastModified Time None Recorded Advance Directives Directive N: Payers Encounter Date Sequence Insurance Name Policy Number Policy Pete Covered Member ID Pete Member ID Guarantor Name 10/22/2024 1 [facility] [id number] Kristie Keith [id number] Kristie Keith Notes Date Note Type Note Provider Name and Address Organization Details Recorded Time 10/22/2024 text/html OV 10/22/2024:He re to establish care Present Hx:Multiple joint pain ? MCTD Here to discuss above and to get labsWants a referral to a house manager Jesus Barreto MD [address] [facility], [facility] [address], [place], [address], [place] [facility] [employer] [facility] 11/08/2024 20:06:30 OBGyn Episode No OBEpisode recorded.
--- OUTSIDE RECORDS SUMMARY | 2024-12-17 11:18 | XMS_ITS | Referral Summary ---
Author Organization [facility] [address] [place] [address] Care Team Providers Care Occupational Therapy Co Director Name Role Phone Yin Lutz MD Primary Care Provider [phone] Allergies No known active allergies Medications Nortrel 135, 28, 1-35 mg-mcg per tablet Take 1 tablet by mouth daily 03/14/2022 Active Active Problems No known active problems Social History Tobacco Use Types Packs/Day Years Used Date Smoking Tobacco: Never Smokeless Tobacco: Never Personal Safety Answer Date Recorded Getting School Help Needed Not on file 01/11 Comments Unknown Sex and Gender Information Value Date Recorded Sex Assigned at Not on file Legal Sex 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 Gender Identity Not on file Sexual Orientation Not on file Last Filed Vital Signs Vital Sign Reading Time Taken Comments Blood Pressure - - Pulse - - Temperature - - Respiratory Rate - - Oxygen Saturation - - Inhaled Oxygen Concentration - - Weight 120.7 kg (266 lb) 05/09/2022 9:45 AM CDT Height 170.2 cm (5' 7 ) 05/09/2022 9:45 AM CDT Body Mass Index 41.66 05/09/2022 9:45 AM CDT Plan of Treatment Not on file Insurance [facility] CHOICE PLUS [facility] CHOICE PLUS Care Teams Occupational Therapy Co Director Relationship Specialty Start Date End Date Yni Lutz MD [address] [place] [address] PCP - General Family Medicine 05/29/21
--- OUTSIDE RECORDS SUMMARY | 2024-12-17 11:18 | XMS_ITS | Clinical Summary ---
Author Organization [facility] [address] Address [address] [place] [address] Care Team Providers Care University Counselor Name Role Phone Yin Lutz MD Primary Care Provider [phone] Allergies No known active allergies Medications Nortrel 1/35, 28, 1-35 mg-mcg per tablet Take 1 tablet by mouth daily 03/14/2022 Active Active Problems No known active problems Medical History Medical History Date Comments Hypertension Obesity Family History Medical History Relation Name Comments Arthritis Father Diabetes Father Heart disease Father Hypertension Father Diabetes Mother Hypertension Mother Relation Name Status Comments Father Mother Social History Tobacco Use Types Packs/Day Years Used Date Smoking Tobacco: Never Smokeless Tobacco: Never Personal Safety Answer Date Recorded Getting School Help Needed Not on file 01/11 Comments Unknown Sex and Gender Information Value Date Recorded Sex Assigned at Not on file 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 Gender Identity Not on file Sexual Orientation Not on file Obstetrics History Last Filed Vital Signs Vital Sign Reading Time Taken Comments Blood Pressure - - Pulse - - Temperature - - Respiratory Rate - - Oxygen Saturation - - Inhaled Oxygen Concentration - - Weight 120.7 kg (266 lb) 05/09/2022 9:45 AM CDT Height 170.2 cm (5' 7 ) 05/09/2022 9:45 AM CDT Body Mass Index 41.66 05/09/2022 9:45 AM CDT Plan of Treatment Health Maintenance Due Date Last Done Comments Cervical Cancer Screening 1989 Depression Screening 1989 Hepatitis C Screening 1989 DTaP/Tdap/Td Vaccine (1 - Tdap) 02/29/2000 Varicella Vaccines (1 of 2 - 13+ 2-dose series) 2002 Hepatitis B Screening 2007 Regular Well Visit/Exam 18-64 2007 Influenza Vaccine (#1) 2024 HPV Vaccines Aged Out No longer eligi ble based on patient's age to complete this topic Pneumococcal vaccine <65 Aged Out No longer eligible based on patient's age to complete this topic Insurance [facility] PL[facility] Care Teams University Counselor Relationship Specialty Start Date End Date Yin Lutz MD [address] [place] [address] PCP - General Family Medicine 05/29/21
== END 2024-12-17 10:24 | disposition home or self-care (01) ==
PROVIDERS: PCP Internal Medicine; Visit Provider Internal Medicine
DX: M53.3 Sacrococcygeal disorders, not elsewhere classified (principal); M19.072 Primary osteoarthritis, left ankle and foot
CPT/HCPCS: 72202; 73100; 73120; 73600; 73620